=== PATIENT | female | born 1955 | race Caucasian/White ===

== ENCOUNTER → 2018-02-19 | Outpatient (CLI) | payer MEDICARE, OTHER ==
[~2018-02-19] MED LIST: CARB400T PO; CITA40TA12 PO; GABA300C PO; IBUP200C8 PO; MORP-52 PO; OXYC1TAB9 PO
[2018-02-19 16:12] LABS: MICROSCOPIC NOT IND
[2018-02-19 16:13] LABS: BASOPHILS # (AUTO) 0.04 x10^3/uL (0-0.1); BASOPHILS % (AUTO) 1 % (0-1); EOSINOPHILS # (AUTO) 0.07 x10^3/uL (0-0.4); EOSINOPHILS % (AUTO) 1 % (1-7); LYMPHOCYTES # (AUTO) 1.07 x10^3/uL (1-3.4); LYMPHOCYTES % (AUTO) 18 % (22-44); MD NO; MEAN CORPUSCULAR HEMOGLOBIN 33.2 pg (27.0-34.8); MEAN CORPUSCULAR HGB CONC 34.4 g/dL (32.4-35.8); MEAN CORPUSCULAR VOLUME 96.4 fL (80-100); MONOCYTES # (AUTO) 0.38 x10^3/uL (0.2-0.8); MONOCYTES % (AUTO) 6 % (2-9); NEUTROPHILS # (AUTO) 4.36 x10^3/uL (1.8-6.8); NEUTROPHILS % (AUTO) 74 % (42-75); PLATELET COUNT 235 x10^3/uL (130-400); RED BLOOD COUNT 4.17 x10^6/uL (3.82-5.3)
[2018-02-19 16:14] LABS: CULTURE INDICATED? NO
[2018-02-19 16:21] LABS: PROTHROMBIN TIME 10.3 Seconds (9.6-11.5)
[2018-02-19 16:23] LABS: ANION GAP 8 mmol/L (5-15); CALCIUM 8.4 mg/dL (8.5-10.1); CHLORIDE 97 mmol/L (98-107)
== END | disposition home or self-care (01) ==
LOC: STAR 15:09
DX: Z01.818 Encounter for other preprocedural examination (principal); G57.32 Lesion of lateral popliteal nerve, left lower limb
CPT/HCPCS: 36415; 80048; 81003; 85025; 85610; 85730; 93005

== ENCOUNTER 2018-11-11 12:30 | Emergency (ER) | payer MEDICARE, OTHER ==
[~2018-11-11 12:30] MED LIST changes: +OXYC-432 PO; -OXYC1TAB9 PO
--- NOTE | 2018-11-11 12:34 | NUR ---
NO RESPONSE IN LOBBY
--- NOTE | 2018-11-11 12:35 | NUR ---
Patient left prior to being triaged.
== END 2018-11-11 12:36 | disposition left against medical advice (07) ==
LOC: ED 12:31
DX: M79.605 Pain in left leg (principal); Z53.21 Procedure and treatment not carried out due to patient leaving prior to being seen by health care provider

== ENCOUNTER 2018-11-17 19:13 | Emergency (ER) | payer MEDICARE, OTHER ==
[~2018-11-17] VITALS: Ht 157.5 cm; Wt 76.7 kg
[2018-11-17 19:15] VITALS: BP 216/112
[2018-11-17] MEDS ORDERED: FURO-93 PO (19:19)
--- NOTE | 2018-11-17 19:24 | NUR ---
PT TO ROOM IN GOWN AND PA AT BEDSIDE AWAITING ORDERS.
== END 2018-11-17 20:03 | disposition home or self-care (01) ==
LOC: ED 19:49
DX: M79.631 Pain in right forearm (principal); I10 Essential (primary) hypertension
CPT/HCPCS: 99281

== ENCOUNTER 2019-02-26 13:41 | Inpatient (IN) | payer MEDICARE, MEDICAID, OTHER ==
[~2019-02-26] VITALS: Ht 157.5 cm; Wt 74.0 kg
[~2019-02-26 13:41] MED LIST changes: +FURO-93 PO
[2019-02-26] MEDS ORDERED: SODIUM CHLORIDE FLUSH 10ML SYR IVF ONE (14:00)
--- NOTE | 2019-02-26 14:24 | NUR ---
xray delay- pt very dizzy in w/c. wait for stretcher
[2019-02-26 14:40] LABS: BASOPHILS # (AUTO) 0.02 x10^3/uL (0-0.1); BASOPHILS % (AUTO) 1 % (0-1); EOSINOPHILS # (AUTO) 0.01 x10^3/uL (0-0.4); EOSINOPHILS % (AUTO) 0 % (1-7); LYMPHOCYTES % (AUTO) 16 % (22-44); MD NO; MEAN CORPUSCULAR HEMOGLOBIN 32.6 pg (27.0-34.8); MEAN CORPUSCULAR HGB CONC 34.1 g/dL (32.4-35.8); MEAN CORPUSCULAR VOLUME 95.5 fL (80-100); MEAN PLATELET VOLUME 8.2 fL (7.4-10.4); MONOCYTES # (AUTO) 0.35 x10^3/uL (0.2-0.8); MONOCYTES % (AUTO) 8 % (2-9); NEUTROPHILS # (AUTO) 3.32 x10^3/uL (1.8-6.8); NEUTROPHILS % (AUTO) 75 % (42-75); PLATELET COUNT 369 x10^3/uL (130-400); RED BLOOD COUNT 4.62 x10^6/uL (3.82-5.3); RED CELL DISTRIBUTION WIDTH 12.6 % (9.6-15.2)
[2019-02-26 14:44] LABS: ALANINE AMINOTRANSFERASE 26 U/L (12-78); ALBUMIN 5.1 g/dL (3.4-5.0); ANION GAP 11 mmol/L (5-15); CALCIUM 9.3 mg/dL (8.5-10.1); CHLORIDE 92 mmol/L (98-107); CREATININE 0.82 mg/dL (0.55-1.02)
--- NOTE | 2019-02-26 14:45 | NUR ---
PT TO XR W TECH
[2019-02-26 14:46] LABS: ALKALINE PHOSPHATASE 182 U/L (45-117); BILIRUBIN,TOTAL 0.3 mg/dL (0.2-1.0); TOTAL PROTEIN 8.1 g/dL (6.4-8.2)
[2019-02-26] MEDS ORDERED: MORPHINE SULFATE 4 MG/ML, 1ML IVPush ONE ×2 (15:30→18:30)
[2019-02-26] MEDS ORDERED: POTASSIUM CHLORIDE 40 MEQ in SODIUM CHLORIDE 0.9% 500 ML IV ONE (15:30)
[2019-02-26] MEDS ORDERED: MORPHINE SULFATE 4 MG/ML, 1ML ONE ×2 (16:01→18:09)
--- NOTE | 2019-02-26 16:05 | NUR ---
CT WAITING FOR IV ACCESS
--- NOTE | 2019-02-26 16:13 | NUR ---
XRAY TO GET PT, PT DIZZY, WAITING FOR PT TO USE rr
[2019-02-26] MEDS ORDERED: OMNIPAQUE 350 MG/ML, 100ML BOTTLE ONE (17:26)
[2019-02-26 18:59] LABS: MICROSCOPIC AUTO
[2019-02-26 19:05] LABS: CULTURE INDICATED? NO
--- NOTE | 2019-02-26 19:08 | NUR ---
FATIMAH (RN) IS ASSUMING CARE OF THIS PT AT THIS TIME. SBAR REPORT WAS EXCHANGED AT THE BEDSIDE.
--- NOTE | 2019-02-26 19:27 | NUR ---
HOME MED REC WAS DONE [facility] AT BED SIDE FOR ADMIT EVAL VSS STABLE
[2019-02-26] MEDS: HEPARIN 5,000 UNITS/ML, 1ML SQ SCH (19:30)
[2019-02-26] MEDS ORDERED: LIDODERM 5% PATCH TD PRN (19:30)
[2019-02-26] MEDS ORDERED: LABETALOL 20 MG/4 ML IVPush PRN (19:30)
[2019-02-26] MEDS ORDERED: ZOLPIDEM 5MG TABLET PO PRN (19:30)
[2019-02-26] MEDS ORDERED: hydrALAzine 20 MG/ML, 1ML IVPush PRN (19:30)
[2019-02-26 20:14] LABS: FREE T4 (FREE THYROXINE) 1.07 ng/dL (0.76-1.46); THYROID STIMULATING HORMONE 2.96 mIU/L (0.358-3.740)
--- NOTE | 2019-02-26 20:29 | NUR ---
called floor rn X1 at 2018 the nurse will call back to me for getting report
[2019-02-26 20:34] LABS: HEMOGLOBIN A1C 5.8 % (4.2-6.3)
--- NOTE | 2019-02-26 20:36 | NUR ---
REPORT GIVEN TO NAM PATTERSON 446 PT IS READY TO GO PT WAS ABLE TO DRINK APPLE JUICE W/O ANY NAUSEA NO VOMITTNG
[2019-02-26 21:00] VITALS: BP 127/77
[2019-02-26] MEDS: CITALOPRAM 20 MG TABLET PO SCH (21:00)
[2019-02-26] MEDS: OXYcodone/APAP 10/325MG TABLET PO SCH (21:00)
[2019-02-26] MEDS: GABAPENTIN 300 MG CAPSULE PO SCH (21:00)
[2019-02-26] MEDS: CARBAMAZEPINE XR 200 MG TABLET PO SCH (21:00)
[2019-02-26] MEDS: NICOTINE 21 MG/24 HR PATCH.TD24 TD SCH (21:30)
[2019-02-26 22:08] LABS: HCT (SEDRATE) 39.1 % (34.6-47.8)
[2019-02-26] MEDS: ONDANSETRON ODT 4 MG PO PRN (23:40)
[2019-02-27] MEDS: morphine SULFATE 10 MG/ML, 1ML IVPush PRN ×3 (00:40→19:24)
[2019-02-27 03:13] VITALS: BP 114/68
[2019-02-27] MEDS: HEPARIN 5,000 UNITS/ML, 1ML SQ SCH ×3 (03:30→21:36)
[2019-02-27 06:36] LABS: BASOPHILS # (AUTO) 0.03 x10^3/uL (0-0.1); BASOPHILS % (AUTO) 1 % (0-1); EOSINOPHILS # (AUTO) 0.07 x10^3/uL (0-0.4); EOSINOPHILS % (AUTO) 2 % (1-7); LYMPHOCYTES # (AUTO) 1.41 x10^3/uL (1-3.4); LYMPHOCYTES % (AUTO) 32 % (22-44); MD NO; MEAN CORPUSCULAR HEMOGLOBIN 32.2 pg (27.0-34.8); MEAN CORPUSCULAR HGB CONC 33.7 g/dL (32.4-35.8); MEAN CORPUSCULAR VOLUME 95.6 fL (80-100); MEAN PLATELET VOLUME 8.3 fL (7.4-10.4); MONOCYTES # (AUTO) 0.54 x10^3/uL (0.2-0.8); MONOCYTES % (AUTO) 13 % (2-9); NEUTROPHILS # (AUTO) 2.31 x10^3/uL (1.8-6.8); NEUTROPHILS % (AUTO) 53 % (42-75); PLATELET COUNT 293 x10^3/uL (130-400); RED BLOOD COUNT 4.13 x10^6/uL (3.82-5.3); RED CELL DISTRIBUTION WIDTH 13.2 % (9.6-15.2)
[2019-02-27 06:38] LABS: ANION GAP 8 mmol/L (5-15); CALCIUM 8.7 mg/dL (8.5-10.1); CHLORIDE 99 mmol/L (98-107)
[2019-02-27 06:44] LABS: CHOL/HDL RATIO 4.5; CHOLESTEROL, TOTAL 310 mg/dL (140-239); CREATININE 0.76 mg/dL (0.55-1.02); HDL CHOL % 22 % (28-40); HDL CHOLESTEROL (DIRECT) 69 mg/dL (40-60); LDL CHOLESTEROL,CALCULATED 225 mg/dL (54-169); LDL/HDL RATIO 3.3 (0.5-3.0); TRIGLYCERIDES 80 mg/dL (50-200); VLDL CHOLESTEROL 16 mg/dL (0-25)
[2019-02-27 07:05] VITALS: BP 110/63
[2019-02-27] MEDS: ONDANSETRON 2MG/ML, 2ML IVPush PRN (08:14)
[2019-02-27] MEDS: CITALOPRAM 20 MG TABLET PO SCH ×2 (08:47→21:36)
[2019-02-27] MEDS: PANTOPROZOLE 40MG TABLET PO SCH (08:47)
[2019-02-27] MEDS: GABAPENTIN 300 MG CAPSULE PO SCH ×3 (08:47→21:36)
[2019-02-27] MEDS: OXYcodone/APAP 10/325MG TABLET PO SCH ×3 (08:47→21:36)
[2019-02-27] MEDS: CARBAMAZEPINE XR 200 MG TABLET PO SCH ×2 (08:47→21:36)
[2019-02-27 09:20] LABS: POTASSIUM,URINE RANDOM 26 mmol/L; SODIUM,URINE RANDOM 13 mmol/L
[2019-02-27 09:21] LABS: CHLORIDE,URINE RANDOM < 10 mmol/L
[2019-02-27 09:43] LABS: OSMOLALITY,URINE 380 mOsm/kg (500-850)
[2019-02-27] MEDS ORDERED: POTASSIUM CHLORIDE 40 MEQ in SODIUM CHLORIDE 0.9% 500 ML IV ONE (14:30)
[2019-02-27 15:55] VITALS: BP 131/73
[2019-02-27 21:10] VITALS: BP 111/67
[2019-02-27] MEDS: NICOTINE 21 MG/24 HR PATCH.TD24 TD SCH (21:30)
[2019-02-28] MEDS: ONDANSETRON 2MG/ML, 2ML IVPush PRN
[2019-02-28 02:07] VITALS: BP 141/77
[2019-02-28] MEDS: morphine SULFATE 10 MG/ML, 1ML IVPush PRN ×4 (03:05→17:53)
[2019-02-28] MEDS: HEPARIN 5,000 UNITS/ML, 1ML SQ SCH ×3 (04:30→21:53)
[2019-02-28 05:36] LABS: BASOPHILS # (AUTO) 0.03 x10^3/uL (0-0.1); BASOPHILS % (AUTO) 1 % (0-1); EOSINOPHILS # (AUTO) 0.11 x10^3/uL (0-0.4); EOSINOPHILS % (AUTO) 3 % (1-7); LYMPHOCYTES % (AUTO) 35 % (22-44); MD NO; MEAN CORPUSCULAR HEMOGLOBIN 32.4 pg (27.0-34.8); MEAN CORPUSCULAR HGB CONC 33.5 g/dL (32.4-35.8); MEAN CORPUSCULAR VOLUME 96.9 fL (80-100); MEAN PLATELET VOLUME 8.2 fL (7.4-10.4); MONOCYTES # (AUTO) 0.45 x10^3/uL (0.2-0.8); MONOCYTES % (AUTO) 12 % (2-9); NEUTROPHILS # (AUTO) 1.97 x10^3/uL (1.8-6.8); NEUTROPHILS % (AUTO) 50 % (42-75); PLATELET COUNT 277 x10^3/uL (130-400); RED BLOOD COUNT 3.75 x10^6/uL (3.82-5.3)
[2019-02-28 08:14] VITALS: BP 127/70
[2019-02-28] MEDS: GABAPENTIN 300 MG CAPSULE PO SCH ×3 (08:17→21:52)
[2019-02-28] MEDS: CARBAMAZEPINE XR 200 MG TABLET PO SCH ×2 (08:17→21:52)
[2019-02-28] MEDS: OXYcodone/APAP 10/325MG TABLET PO SCH ×3 (08:17→21:52)
[2019-02-28] MEDS: PANTOPROZOLE 40MG TABLET PO SCH (08:17)
[2019-02-28] MEDS: CITALOPRAM 20 MG TABLET PO SCH ×2 (08:17→21:52)
[2019-02-28 08:31] LABS: ALBUMIN 3.5 g/dL (3.4-5.0); ANION GAP 1 mmol/L (5-15); CALCIUM 8.4 mg/dL (8.5-10.1); CHLORIDE 106 mmol/L (98-107); CREATININE 0.75 mg/dL (0.55-1.02)
[2019-02-28] MEDS: ONDANSETRON ODT 4 MG PO PRN (13:12)
[2019-02-28 13:56] VITALS: BP 146/79
[2019-02-28] MEDS ORDERED: LIDO700A20 TD (14:30)
[2019-02-28] MEDS ORDERED: OMEP-110 PO (14:30)
[2019-02-28] MEDS ORDERED: BISACODYL 10 MG SUPP PR PRN ×2 (14:40→17:00)
[2019-02-28] MEDS ORDERED: POLYETHYLENE GLYCOL 17 GM PACKET PO PRN (17:00)
[2019-02-28] MEDS ORDERED: MAGNESIUM HYDROXIDE 8%, 30ML UDC PO PRN (17:00)
[2019-02-28 20:03] VITALS: BP 131/75
[2019-02-28] MEDS: NICOTINE 21 MG/24 HR PATCH.TD24 TD SCH (21:30)
[2019-03-01] MEDS: morphine SULFATE 10 MG/ML, 1ML IVPush PRN (01:22)
[2019-03-01 01:47] VITALS: BP 126/76
[2019-03-01] MEDS: HEPARIN 5,000 UNITS/ML, 1ML SQ SCH (04:30)
[2019-03-01 07:55] VITALS: BP 145/86
[2019-03-01] MEDS: CARBAMAZEPINE XR 200 MG TABLET PO SCH (08:03)
[2019-03-01] MEDS: OXYcodone/APAP 10/325MG TABLET PO SCH (08:03)
[2019-03-01] MEDS: PANTOPROZOLE 40MG TABLET PO SCH (08:03)
[2019-03-01] MEDS: GABAPENTIN 300 MG CAPSULE PO SCH (08:04)
[2019-03-01] MEDS: CITALOPRAM 20 MG TABLET PO SCH (08:04)
[2019-03-01] MEDS: ONDANSETRON ODT 4 MG PO PRN (08:33)
[2019-03-01] MEDS ORDERED: ONDA4TAB7 PO (09:15)
[2019-03-01] MEDS ORDERED: ATOR20TA86 PO (09:25)
== END 2019-03-01 10:40 | disposition home or self-care (01) | DRG 392 ==
LOC: ED 16:33 → EDIP 19:24 → 4NOR 21:07 → DCLOUNGE 03-01 10:33
PROVIDERS: ADMIT Hospitalist; ATTEND Hospitalist
DX: A08.4 Viral intestinal infection, unspecified (principal); E87.1 Hypo-osmolality and hyponatremia; M54.5 Low back pain; E87.6 Hypokalemia; E86.0 Dehydration; G62.9 Polyneuropathy, unspecified; G40.909 Epilepsy, unspecified, not intractable, without status epilepticus; N18.9 Chronic kidney disease, unspecified; I12.9 Hypertensive chronic kidney disease with stage 1 through stage 4 chronic kidney disease, or unspecified chronic kidney disease; G89.29 Other chronic pain; F32.9 Major depressive disorder, single episode, unspecified; K86.89 Other specified diseases of pancreas; F17.210 Nicotine dependence, cigarettes, uncomplicated; Z99.2 Dependence on renal dialysis; Z90.710 Acquired absence of both cervix and uterus; Z79.899 Other long term (current) drug therapy
CPT/HCPCS: 36415; 74022; 74177; 80048; 80053; 80061; 81001; 82040; 82436; 83036; 83690; 83930; 83935; 84133; 84300; 84439; 84443; 85025; 85651; 96374; 96375; 99285; G0378; J1644; J2405; J3480; Q0162; Q9967; J2270; J7040

== ENCOUNTER 2019-05-25 19:28 | Emergency (ER) | payer MEDICARE, MEDICAID ==
[~2019-05-25] VITALS: Ht 160 cm; Wt 70.6 kg
[~2019-05-25 19:28] MED LIST changes: +ATOR20TA86 PO; +LIDO700A20 TD; +OMEP-110 PO; +ONDA4TAB7 PO
[2019-05-25 19:30] VITALS: BP 157/105
--- NOTE | 2019-05-25 19:37 | NUR ---
FIRST CONTACT WITH PT. PT STATES " I WENT SWIMMING TODAY AND DEVELOPED RIGHT SHOULER PAIN. " PT DENIES ANY OTHER SYMPTOMS. PT'S AOX4. RESPS EVEN AND UNLABORED.
[2019-05-25] MEDS ORDERED: OXYcodone/APAP 10/325MG TABLET ONE (19:49)
--- NOTE | 2019-05-25 19:52 | NUR ---
PT MEDICATED PER EMAR FOR PAIN. PT TOLERATED WELL.
[2019-05-25] MEDS ORDERED: OXYcodone/APAP 10/325MG TABLET PO ONE (20:00)
--- NOTE | 2019-05-25 20:01 | NUR ---
PT IN XRAY NOW.
--- NOTE | 2019-05-25 20:53 | NUR ---
PT LEFT WITHOUT DC INSTRUCTIONS.
== END 2019-05-25 20:46 | disposition home or self-care (01) ==
LOC: ED 20:28
DX: M25.511 Pain in right shoulder (principal); I10 Essential (primary) hypertension; F17.200 Nicotine dependence, unspecified, uncomplicated
CPT/HCPCS: 99283

== ENCOUNTER 2020-07-30 11:17 | Observation (INO) | payer MEDICARE ==
[~2020-07-30] VITALS: Ht 157.5 cm; Wt 68.9 kg
[~2020-07-30 11:17] MED LIST changes: -OXYC-432 PO; +OXYC1TAB18 PO
[2020-07-30] MEDS ORDERED: ONDANSETRON 2MG/ML, 2ML IVPush ONE ×2 (11:30→14:00)
[2020-07-30] MEDS ORDERED: HYDROmorphone 1 MG/ML, 1ML INJ ONE ×3 (11:53→15:23)
[2020-07-30] MEDS ORDERED: ONDANSETRON 2MG/ML, 2ML ONE ×2 (11:53→13:45)
[2020-07-30] MEDS: HYDROmorphone 1 MG/ML, 1ML INJ IVPush PRN ×2 (11:58→13:00)
[2020-07-30] MEDS ORDERED: PLEASE ENTER HEIGHT AND WEIGHT MC SCH (12:00)
--- NOTE | 2020-07-30 12:17 | NUR ---
PT MEDICATED ORDERED. PT ON BEDSIDE COMMODE FOR UA SAMPLE. PT REPORT SSHE HAS NOT BEEN ABLE TO VOID EASILY SINCE YESTERDAY.
[2020-07-30 12:33] LABS: MICROSCOPIC NOT IND
--- NOTE | 2020-07-30 13:04 | NUR ---
PT MEDICATED AGAIN FOR PAIN. PT TO RAD.
[2020-07-30] MEDS ORDERED: methylPREDNISolone SOD SUCC 125 MG/2 ML ONE (13:38)
[2020-07-30] MEDS ORDERED: methylPREDNISolone SOD SUCC 125 MG/2 ML IVPush ONE (14:00)
--- NOTE | 2020-07-30 14:00 | NUR ---
PT GIVEN SOLUMEDROL PER MD ORDER. WAITING FOR MD RECHECK. PT ASSITED TO BEDSIDE COMMODE. PT ABLE TO STAND AND WALK WITH HER CANE.
[2020-07-30] MEDS ORDERED: HYDROmorphone 1 MG/ML, 1ML INJ IV ONE (15:00)
--- NOTE | 2020-07-30 15:36 | NUR ---
PT REMEDICATED FOR PAIN ASSISTED TO BEDSIDE COMMODE. PT TO HAVE MRI.
--- NOTE | 2020-07-30 16:05 | NUR ---
PT TO MRI.
--- NOTE | 2020-07-30 16:59 | NUR ---
PT BACK FROM MRI AND ON BEDSIDE COMMODE. CHART UP FOR MD RECHECK. PT AWARE.
--- NOTE | 2020-07-30 17:28 | NUR ---
task rn: marcus in room for reeval. pt tbadm for pain control. as
--- NOTE | 2020-07-30 17:40 | NUR ---
CAN EAT PER MADELEINE ORDERED DINNER.
[2020-07-30] MEDS ORDERED: OXYcodone/APAP 10/325MG TABLET PO SCH (18:00)
[2020-07-30] MEDS ORDERED: ONDANSETRON 4 MG TABLET PO PRN (18:00)
[2020-07-30] MEDS ORDERED: POLYETHYLENE GLYCOL 17 GM PACKET PO PRN (18:30)
[2020-07-30] MEDS ORDERED: hydrALAzine 20 MG/ML, 1ML IV PRN (18:30)
[2020-07-30] MEDS ORDERED: MEDROL 4MG DOSEPAK PO SCH (18:30)
[2020-07-30] MEDS ORDERED: BISACODYL 10 MG SUPP PR PRN (18:30)
[2020-07-30] MEDS ORDERED: ACETAMINOPHEN 325 MG TABLET PO PRN (18:30)
--- NOTE | 2020-07-30 18:30 | NUR ---
PT GIVEN MEAL TRAY. PT ASSITED TO BEDSIDE COMMODE BEFORE EATING. WAITING FOR BED ASSIGNMENT.
[2020-07-30] MEDS ORDERED: GABAPENTIN 300 MG CAPSULE ONE (19:13)
[2020-07-30] MEDS ORDERED: OXYcodone/APAP 10/325MG TABLET ONE (19:13)
[2020-07-30] MEDS: GABAPENTIN 300 MG CAPSULE PO SCH ×2 (19:15→22:02)
--- NOTE | 2020-07-30 19:20 | NUR ---
PT MEDICATED FOR PAIN AND NAUSEA. STILL WAITING FOR BED ASSIGNMENT.
[2020-07-30] MEDS ORDERED: GABA-827 PO (19:21)
[2020-07-30] MEDS ORDERED: lisinopril (19:25)
[2020-07-30] MEDS ORDERED: FAMOTIDINE (19:25)
[2020-07-30] MEDS ORDERED: METH750T87 PO (19:25)
[2020-07-30] MEDS ORDERED: ALBUTEROL (19:25)
[2020-07-30] MEDS ORDERED: ONDANSETRON ODT 4 MG ONE (19:57)
[2020-07-30] MEDS: ONDANSETRON ODT 4 MG PO PRN (20:07)
[2020-07-30] MEDS ORDERED: ENALAPRILAT 1.25 MG/ML, 1ML ONE (20:51)
--- NOTE | 2020-07-30 20:55 | NUR ---
GUILHERME AWARE OF VASOTEC BEING GIVEN PER NAHUM AND ALSO PT NOT TAKE ING HER HOME BP MEDS THIS AM. PER NAHUM AND GUILHERME AWARE, PT TO GET HOME BP MEDS OF AMLODIPINE AND LISINOPRIL IF BP DOES NOT RESPOND TO VASOTEC.
--- NOTE | 2020-07-30 20:58 | NUR ---
PT MEDICATED FOR BP OF 193/96. PT WAS TO GET HYRALAZINE BUT HOSPITAL IS OUT OF MEDICATION PER PHARMACY. NAHUM RUBY ON RAILS ENGINEER AWARE AND ORDERED VASOTEC. PT DID NOT TAKE HER MORNING BP MEDS.
[2020-07-30] MEDS ORDERED: ATORVASTATIN 20 MG TABLET PO SCH (21:00)
[2020-07-30] MEDS: ENALAPRILAT 1.25 MG/ML, 2ML IV PRN (21:01)
[2020-07-30 21:19] VITALS: BP 178/90
[2020-07-30] MEDS ORDERED: CARBAMAZEPINE MC SCH (22:00)
[2020-07-30] MEDS: LIDODERM 5% PATCH TD SCH ×2 (22:00→23:30)
[2020-07-30] MEDS: HEPARIN 5,000 UNITS/ML, 1ML SQ SCH (22:02)
[2020-07-30] MEDS: SODIUM CHLORIDE FLUSH 10ML SYR IVF SCH (22:03)
[2020-07-30] MEDS: CARBAMAZEPINE XR 200 MG TABLET PO SCH (22:08)
[2020-07-30 22:23] VITALS: BP 191/99
[2020-07-30] MEDS: AMLODIPINE 5 MG TABLET PO SCH (22:26)
[2020-07-30] MEDS: ACETAMINOPHEN 500 MG TABLET PO PRN (23:30)
[2020-07-31 00:15] VITALS: BP 191/94
[2020-07-31] MEDS: ENALAPRILAT 1.25 MG/ML, 2ML IV PRN (00:24)
[2020-07-31] MEDS: OXYcodone/APAP 10/325MG TABLET PO PRN ×3 (00:54→12:58)
[2020-07-31 02:23] VITALS: BP 166/90
[2020-07-31] MEDS: HEPARIN 5,000 UNITS/ML, 1ML SQ SCH ×2 (05:51→13:59)
[2020-07-31 06:38] VITALS: BP 168/90
[2020-07-31] MEDS ORDERED: OMEPRAZOLE 20 MG CAPSULE.DR PO SCH (07:30)
[2020-07-31] MEDS: ONDANSETRON ODT 4 MG PO PRN (08:48)
[2020-07-31] MEDS: GABAPENTIN 300 MG CAPSULE PO SCH (08:48)
[2020-07-31] MEDS: AMLODIPINE 5 MG TABLET PO SCH (08:49)
[2020-07-31] MEDS: CARBAMAZEPINE XR 200 MG TABLET PO SCH (08:52)
[2020-07-31] MEDS ORDERED: LISINOPRIL 10 MG TABLET PO SCH (09:00)
[2020-07-31] MEDS ORDERED: FUROSEMIDE 20 MG TABLET PO SCH (09:00)
[2020-07-31] MEDS ORDERED: SENNA/DOCUSATE TABLET PO SCH (09:00)
[2020-07-31] MEDS: SODIUM CHLORIDE FLUSH 10ML SYR IVF SCH (09:00)
[2020-07-31] MEDS ORDERED: LIDODERM REMOVE PATCH NOTE XX SCH (10:00)
[2020-07-31] MEDS: ACETAMINOPHEN 500 MG TABLET PO PRN (11:34)
[2020-07-31] MEDS ORDERED: METH4TAB PO (12:07)
[2020-07-31 13:34] VITALS: BP 148/69
== END 2020-07-31 15:00 | disposition home or self-care (01) ==
LOC: ED 14:19 → INTOOBSV 17:32 → EDIP 17:32 → 3N 21:10 → DCLOUNGE 07-31 14:40
PROVIDERS: ADMIT Hospitalist; ATTEND Hospitalist
DX: M51.36 Other intervertebral disc degeneration, lumbar region (principal); M48.07 Spinal stenosis, lumbosacral region; M54.9 Dorsalgia, unspecified; G89.29 Other chronic pain; I16.0 Hypertensive urgency; M47.9 Spondylosis, unspecified; I10 Essential (primary) hypertension; F11.20 Opioid dependence, uncomplicated; F17.210 Nicotine dependence, cigarettes, uncomplicated; F32.9 Major depressive disorder, single episode, unspecified; R56.9 Unspecified convulsions; E78.5 Hyperlipidemia, unspecified; M21.372 Foot drop, left foot; Z79.899 Other long term (current) drug therapy; Z90.710 Acquired absence of both cervix and uterus; Z66 Do not resuscitate
CPT/HCPCS: 72148; 73502; 81003; 96372; 96374; 96375; 96376; 97163; 99285; G0378; J1170; J1644; J2405; J2930; J7509; Q0162

== ENCOUNTER 2020-08-08 01:22 | Emergency (ER) | payer MEDICARE ==
[~2020-08-08] VITALS: Ht 157.5 cm; Wt 70.9 kg
[~2020-08-08 01:22] MED LIST changes: +ALBUTEROL; +FAMOTIDINE; +GABA-827 PO; +METH4TAB PO; +METH750T87 PO; +lisinopril
[2020-08-08] MEDS ORDERED: LIDODERM 5% PATCH TD ONE ×2 (01:54→02:00)
[2020-08-08] MEDS ORDERED: KETOROLAC 30 MG/1 ML ONE (01:54)
[2020-08-08] MEDS ORDERED: HYDROmorphone 2 MG/ML, 1ML ONE ×2 (01:54→03:08)
[2020-08-08] MEDS ORDERED: ONDANSETRON 2MG/ML, 2ML ONE (01:55)
[2020-08-08] MEDS ORDERED: KETOROLAC 30 MG/1 ML IVPush ONE (02:00)
[2020-08-08] MEDS ORDERED: ONDANSETRON 2MG/ML, 2ML IVPush ONE (02:00)
[2020-08-08] MEDS: HYDROmorphone 2 MG/ML, 1ML IVPush PRN ×2 (02:12→03:13)
--- NOTE | 2020-08-08 03:13 | NUR ---
Pain 8/10 from previous 08/22. Second dose of dilaudid given. Pt states she will be ready for discharge after second dose. notified.
[2020-08-08 03:14] VITALS: BP 156/110
--- NOTE | 2020-08-08 03:40 | NUR ---
Reviewed discharge paperwork with pt. Pt is drowsy from dilaudid. RN keeping pt until safe for discharge. Taxi vouchure will be provided for safe discharge.
== END 2020-08-08 05:03 | disposition home or self-care (01) ==
LOC: ED 04:54
DX: M54.16 Radiculopathy, lumbar region (principal); I10 Essential (primary) hypertension; G89.29 Other chronic pain
CPT/HCPCS: 96374; 96375; 96376; 99284; J1170; J1885; J2405

== ENCOUNTER 2020-08-22 12:27 | Emergency (ER) | payer MEDICARE ==
[~2020-08-22] VITALS: Ht 157.5 cm; Wt 71.0 kg
[2020-08-22] MEDS ORDERED: SODIUM CHLORIDE FLUSH 10ML SYR IVF ONE (13:00)
[2020-08-22] MEDS ORDERED: KETOROLAC 30 MG/1 ML IVPush ONE (13:00)
[2020-08-22] MEDS ORDERED: ONDANSETRON 2MG/ML, 2ML IVPush ONE (13:00)
[2020-08-22] MEDS ORDERED: KETOROLAC 30 MG/1 ML ONE (13:11)
[2020-08-22] MEDS ORDERED: HYDROmorphone 1 MG/ML, 1ML INJ ONE ×2 (13:12→14:23)
[2020-08-22] MEDS ORDERED: ONDANSETRON 2MG/ML, 2ML ONE (13:12)
[2020-08-22] MEDS: HYDROmorphone 2 MG/ML, 1ML IVPush PRN ×2 (13:46→14:25)
[2020-08-22 14:20] VITALS: BP 138/78
--- NOTE | 2020-08-22 14:27 | NUR ---
BREAK RN: PT REPORTS PAIN STILL 8/10, REQUESTING SECOND DOSE OF PAIN MEDS PRIOR TO DC. PT MEDICATED PER EMAR. RESTING ON GURNEY W/ CALL LIGHT IN REACH AND SIDE RAILS UPX2. GONZÁLEZ ELMORE.
== END 2020-08-22 15:08 | disposition home or self-care (01) ==
LOC: ED 13:14
DX: M54.41 Lumbago with sciatica, right side (principal); G89.29 Other chronic pain; G43.909 Migraine, unspecified, not intractable, without status migrainosus; I10 Essential (primary) hypertension
CPT/HCPCS: 96374; 96375; 96376; 99284; J1170; J1885; J2405

== ENCOUNTER 2020-09-06 14:59 | Emergency (ER) | payer MEDICARE, MEDICAID ==
[~2020-09-06] VITALS: Ht 157.5 cm; Wt 70.0 kg
[~2020-09-06 14:59] MED LIST changes: +PROM25SU35 PR; -lisinopril; +lisinopril PO
[2020-09-06 15:15] VITALS: BP 98/53
--- NOTE | 2020-09-06 15:40 | NUR ---
PT RESTING IN BED, BROUGHT BACK FROM TRIAGE WITH CHIEF COMPLAINT OF LOW BACK PAIN STARTING THIS AM. HX OF BACK PAIN, SEEING ORTHO FOR POSSIBLE SURGERY.
[2020-09-06] MEDS ORDERED: KETOROLAC 30 MG/1 ML ONE (15:44)
[2020-09-06] MEDS ORDERED: HYDROmorphone 1 MG/ML, 1ML INJ ONE (15:44)
[2020-09-06 15:52] LABS: BASOPHILS % (AUTO) 1 % (0-1); EOSINOPHILS % (AUTO) 1 % (1-7); LYMPHOCYTES % (AUTO) 14 % (22-44); MEAN CORPUSCULAR HEMOGLOBIN 33.4 pg (27.0-34.8); MEAN CORPUSCULAR HGB CONC 34.4 g/dL (32.4-35.8); MEAN PLATELET VOLUME 7.5 fL (7.4-10.4); MONOCYTES % (AUTO) 9 % (2-9); NEUTROPHILS % (AUTO) 75 % (42-75); PLATELET COUNT 407 x10^3/uL (130-400); RED BLOOD COUNT 4.05 x10^6/uL (3.82-5.3); RED CELL DISTRIBUTION WIDTH 12.9 % (9.6-15.2)
[2020-09-06 15:53] LABS: MD NO
[2020-09-06] MEDS ORDERED: SODIUM CHLORIDE FLUSH 10ML SYR IVF ONE (16:00)
[2020-09-06] MEDS ORDERED: KETOROLAC 30 MG/1 ML IVPush ONE (16:00)
[2020-09-06] MEDS ORDERED: HYDROmorphone 2 MG/ML, 1ML IVPush PRN (16:00)
[2020-09-06 16:06] LABS: ALANINE AMINOTRANSFERASE 16 U/L (12-78); ALBUMIN 3.7 g/dL (3.4-5.0); ANION GAP 7 mmol/L (5-15); CALCIUM 8.8 mg/dL (8.5-10.1); CHLORIDE 95 mmol/L (98-107)
[2020-09-06 16:08] LABS: ALKALINE PHOSPHATASE 125 U/L (45-117); BILIRUBIN,TOTAL 0.3 mg/dL (0.2-1.0); TOTAL PROTEIN 7.1 g/dL (6.4-8.2)
--- NOTE | 2020-09-06 16:11 | NUR ---
AWARE OF NEEDED URINE SAMPLE
--- NOTE | 2020-09-06 16:50 | NUR ---
DISCHARGE INSTRUCITONS REVIEWED
== END 2020-09-06 16:52 | disposition home or self-care (01) ==
LOC: ED 16:48
DX: M51.16 Intervertebral disc disorders with radiculopathy, lumbar region (principal); E87.1 Hypo-osmolality and hyponatremia; R94.31 Abnormal electrocardiogram [ECG] [EKG]; G89.29 Other chronic pain; G43.909 Migraine, unspecified, not intractable, without status migrainosus
CPT/HCPCS: 36415; 71045; 80053; 83690; 85025; 93005; 96374; 96375; 99285; J1170; J1885

== ENCOUNTER 2020-09-18 18:13 | Emergency (ER) | payer MEDICARE, MEDICAID ==
[~2020-09-18] VITALS: Ht 157.5 cm; Wt 69.5 kg
--- NOTE | 2020-09-18 19:17 | NUR ---
PT AMB TO ROOM FROM LOBBY STEADY GAIT AT THIS TIME
--- NOTE | 2020-09-18 19:20 | NUR ---
URINE SENT TO LAB
[2020-09-18 19:49] LABS: MICROSCOPIC NOT IND
[2020-09-18] MEDS ORDERED: HYDROmorphone 1 MG/ML, 1ML INJ IM ONE (20:00)
[2020-09-18] MEDS ORDERED: HYDROmorphone 1 MG/ML, 1ML INJ ONE (20:10)
[2020-09-18 20:16] VITALS: BP 141/81
[2020-09-18] MEDS ORDERED: PROMETHAZINE 25 MG/ML, 1ML ONE (20:22)
[2020-09-18] MEDS ORDERED: PROMETHAZINE 25 MG/ML, 1ML IM ONE (20:30)
--- NOTE | 2020-09-18 20:36 | NUR ---
Pt medicated per mar, Patient/Caregiver given discharge instructions and they have confirmed that they understand the instructions. Patient ambulatory with steady gait.
== END 2020-09-18 20:38 | disposition home or self-care (01) ==
LOC: ED 20:37
DX: M25.551 Pain in right hip (principal); R20.2 Paresthesia of skin; M54.5 Low back pain; I10 Essential (primary) hypertension; F17.200 Nicotine dependence, unspecified, uncomplicated; G43.909 Migraine, unspecified, not intractable, without status migrainosus
CPT/HCPCS: 81003; 96372; 99284; J1170; J2550

== ENCOUNTER 2020-11-01 15:36 | Emergency (ER) | payer MEDICARE, MEDICAID ==
[~2020-11-01] VITALS: Ht 157.5 cm; Wt 72.2 kg
[~2020-11-01 15:36] MED LIST changes: +PROM25TA10 PR
--- NOTE | 2020-11-01 16:24 | NUR ---
PT LYING ON LEFT SIDE IN POSITION OF COMFORT. NOTED TO HAVE SEVERAL ANAYA SPINAL REGION S/P SURGERY OCT 21. STATES PAIN WORSENED YESTERDAY AND USED ALL HER MEDS UP YESTERDAY.
[2020-11-01] MEDS ORDERED: HYDROmorphone 2 MG/ML, 1ML IM ONE (17:00)
[2020-11-01] MEDS ORDERED: HYDROmorphone 1 MG/ML, 1ML INJ ONE (17:19)
[2020-11-01 17:25] LABS: BASOPHILS % (AUTO) 1 % (0-1); EOSINOPHILS % (AUTO) 4 % (1-7); LYMPHOCYTES % (AUTO) 12 % (22-44); MEAN CORPUSCULAR HGB CONC 34.7 g/dL (32.4-35.8); MEAN PLATELET VOLUME 7.7 fL (7.4-10.4); MONOCYTES % (AUTO) 7 % (2-9); NEUTROPHILS % (AUTO) 76 % (42-75); PLATELET COUNT 626 x10^3/uL (130-400); RED CELL DISTRIBUTION WIDTH 12.8 % (9.6-15.2)
--- NOTE | 2020-11-01 17:26 | NUR ---
AFTER MD BENEDICT MEDICATED NOTED ON JAN AND TO CT VIA PIPO
--- NOTE | 2020-11-01 17:27 | NUR ---
CORRECTION TO ABOVE NOT TO XRAY VIA PIPO
[2020-11-01 17:32] LABS: ALBUMIN 3.5 g/dL (3.4-5.0); ANION GAP 7 mmol/L (5-15); CALCIUM 8.8 mg/dL (8.5-10.1); CHLORIDE 103 mmol/L (98-107); CREATININE 0.78 mg/dL (0.55-1.02)
--- NOTE | 2020-11-01 17:58 | NUR ---
PT STATES PAIN 9/10 BUT PRESENTS MUCH MORE COMFORTABLE THAN BEFORE. AMBULATED TO BATHROOM WITH USE OF WALKER AND WITHOUT ASSISTANCE.
[2020-11-01 18:23] LABS: <RBC MORPHOLOGY> NORMAL; MD MORPH REVIEW ONLY
[2020-11-01 18:24] LABS: <PLATELET ESTIMATE> INCREASED; LARGE PLATELETS 1+
--- NOTE | 2020-11-01 18:26 | NUR ---
back in gurney lying on gurney on side in position of comfort, no distress. urine sample sent to lab
[2020-11-01 18:36] LABS: MICROSCOPIC NOT IND
--- NOTE | 2020-11-01 18:42 | NUR ---
PROVIDED SNACKS WHILE AWAITING RE-EVAL
--- NOTE | 2020-11-01 18:54 | NUR ---
BEDSIDE REPORT FROM JAROD BROWNING, ASSUMMING CARE OF PT AT THIS TIME
[2020-11-01] MEDS ORDERED: OXYcodone/APAP 10/325MG TABLET ONE (19:40)
[2020-11-01 19:43] VITALS: BP 145/67
--- NOTE | 2020-11-01 19:47 | NUR ---
PT MEDICATED PER MAR
--- NOTE | 2020-11-01 19:49 | NUR ---
PER DR LAU AWAITING CALL FROM AMY TO CREATE PAIN MANAGEMENT PLAN
[2020-11-01] MEDS ORDERED: OXYcodone/APAP 10/325MG TABLET PO ONE (20:00)
--- NOTE | 2020-11-01 21:04 | NUR ---
Patient/Caregiver given discharge instructions and they have confirmed that they understand the instructions. Patient ambulatory with steady gait. PT REFUSED DC VITALS
== END 2020-11-01 21:16 | disposition home or self-care (01) ==
LOC: ED 16:31
DX: M54.5 Low back pain (principal); G89.29 Other chronic pain; I11.0 Hypertensive heart disease with heart failure; I50.9 Heart failure, unspecified; F17.200 Nicotine dependence, unspecified, uncomplicated
CPT/HCPCS: 36415; 72110; 80048; 81003; 82040; 85025; 96372; 99284; J1170

== ENCOUNTER 2020-11-17 23:51 | Emergency (ER) | payer MEDICARE, MEDICAID ==
[~2020-11-17] VITALS: Ht 157.5 cm; Wt 69.9 kg
[2020-11-18] MEDS ORDERED: HYDROmorphone 1 MG/ML, 1ML INJ ONE ×2 (00:24→01:59)
[2020-11-18] MEDS ORDERED: HYDROmorphone 1 MG/ML, 1ML INJ IM ONE ×2 (00:30→02:00)
[2020-11-18 02:33] VITALS: BP 102/53
== END 2020-11-18 02:45 | disposition home or self-care (01) ==
LOC: ED 11-18 00:28
DX: M54.5 Low back pain (principal); I10 Essential (primary) hypertension; G43.909 Migraine, unspecified, not intractable, without status migrainosus; G89.29 Other chronic pain; F17.200 Nicotine dependence, unspecified, uncomplicated
CPT/HCPCS: 96372; 99284; J1170

== ENCOUNTER 2020-11-24 17:42 | Emergency (ER) | payer MEDICARE, MEDICAID ==
[~2020-11-24] VITALS: Ht 157.5 cm; Wt 71.4 kg
[~2020-11-24 17:42] MED LIST changes: +POLY17PO5 PO; +PSYL0.5215 PO
[2020-11-24] MEDS ORDERED: KETOROLAC 60 MG/2 ML ONE (18:19)
--- NOTE | 2020-11-24 18:20 | NUR ---
BREAK RN: PT TO XR
[2020-11-24] MEDS ORDERED: KETOROLAC 30 MG/1 ML IM ONE (18:30)
[2020-11-24 19:18] LABS: ALBUMIN 4.3 g/dL (3.4-5.0); ANION GAP 9 mmol/L (5-15); CALCIUM 9.1 mg/dL (8.5-10.1); CHLORIDE 95 mmol/L (98-107)
[2020-11-24 19:23] LABS: BASOPHILS % (AUTO) 1 % (0-1); EOSINOPHILS % (AUTO) 3 % (1-7); LYMPHOCYTES % (AUTO) 19 % (22-44); MEAN CORPUSCULAR HEMOGLOBIN 31.4 pg (27.0-34.8); MEAN CORPUSCULAR HGB CONC 34.4 g/dL (32.4-35.8); MONOCYTES % (AUTO) 10 % (2-9); NEUTROPHILS % (AUTO) 67 % (42-75); PLATELET COUNT 384 x10^3/uL (130-400); RED BLOOD COUNT 3.53 x10^6/uL (3.82-5.3); RED CELL DISTRIBUTION WIDTH 14.6 % (9.6-15.2)
[2020-11-24 19:28] LABS: MD NO
[2020-11-24] MEDS ORDERED: HYDROmorphone 2 MG/ML, 1ML IM PRN (19:30)
[2020-11-24] MEDS ORDERED: HYDROmorphone 2 MG/ML, 1ML ONE (19:30)
[2020-11-24] MEDS ORDERED: POTASSIUM CHLORIDE 20 MEQ TAB.ER.PRT ONE (20:16)
[2020-11-24] MEDS ORDERED: POTASSIUM CHLORIDE 20 MEQ TAB.ER.PRT PO ONE (20:30)
[2020-11-24] MEDS ORDERED: HYDROmorphone 1 MG/ML, 1ML INJ ONE (21:53)
[2020-11-24] MEDS ORDERED: HYDROmorphone 1 MG/ML, 1ML INJ IV ONE (22:00)
[2020-11-24 22:31] VITALS: BP 149/85
--- NOTE | 2020-11-24 22:33 | NUR ---
PT AMBULATED TO LOBBY WITH WALKER, PT'S FRIEND WILL COME PICK HER UP. PT EDUCATED ABOUT NOT DRIVING HERSELF DUE TO PAIN MEDICATIONS GIVEN.
== END 2020-11-24 22:34 | disposition home or self-care (01) ==
LOC: ED 18:13
DX: G89.11 Acute pain due to trauma (principal); M25.511 Pain in right shoulder; M54.6 Pain in thoracic spine; M54.5 Low back pain; E87.1 Hypo-osmolality and hyponatremia; E87.6 Hypokalemia; I11.0 Hypertensive heart disease with heart failure; I50.9 Heart failure, unspecified; G89.29 Other chronic pain; G43.909 Migraine, unspecified, not intractable, without status migrainosus; F17.200 Nicotine dependence, unspecified, uncomplicated
CPT/HCPCS: 36415; 72072; 72110; 73030; 80048; 82040; 85025; 96372; 96374; 99284; J1170; J1885

== ENCOUNTER 2020-11-26 04:33 | Emergency (ER) | payer MEDICARE, MEDICAID ==
[~2020-11-26] VITALS: Ht 157.5 cm; Wt 74.5 kg
[2020-11-26] MEDS ORDERED: KETOROLAC 30 MG/1 ML ONE (04:59)
[2020-11-26] MEDS ORDERED: HYDROmorphone 1 MG/ML, 1ML INJ ONE (04:59)
[2020-11-26] MEDS ORDERED: HYDROmorphone 2 MG/ML, 1ML IM ONE (05:00)
[2020-11-26] MEDS ORDERED: KETOROLAC 30 MG/1 ML IM ONE (05:00)
--- NOTE | 2020-11-26 05:09 | NUR ---
PT HAVING INCREASED BACK PAIN THIS MORNING, CHRONIC ISSUE, PT MEDICATED PER EMAR, PLACED ON CONTINUOUS PULSE OX AND PROVIDED WARM BLANKET FOR COMFORT.
[2020-11-26 05:35] VITALS: BP 124/59
--- NOTE | 2020-11-26 05:37 | NUR ---
PT STATES FEELING A LITTLE BIT BETTER AFTER MEDICATION ADMIN, PT RESTING IN GURNEY, EVEN RESPIRATIONS, PULSE OX IN PLACE
== END 2020-11-26 05:53 | disposition home or self-care (01) ==
LOC: ED 05:51
DX: S39.012A Strain of muscle, fascia and tendon of lower back, initial encounter (principal); S29.012A Strain of muscle and tendon of back wall of thorax, initial encounter; M25.511 Pain in right shoulder; I11.0 Hypertensive heart disease with heart failure; I50.9 Heart failure, unspecified; E87.6 Hypokalemia; E87.1 Hypo-osmolality and hyponatremia; G43.909 Migraine, unspecified, not intractable, without status migrainosus; G89.29 Other chronic pain; W01.0XXA Fall on same level from slipping, tripping and stumbling without subsequent striking against object, initial encounter; Y93.89 Activity, other specified; Y92.89 Other specified places as the place of occurrence of the external cause; Y99.8 Other external cause status
CPT/HCPCS: 96372; 99284; J1170; J1885

== ENCOUNTER 2020-11-29 00:58 | Emergency (ER) | payer MEDICARE, MEDICAID ==
[~2020-11-29] VITALS: Ht 157.5 cm; Wt 71.0 kg
[2020-11-29 01:00] VITALS: BP 180/83
[2020-11-29] MEDS ORDERED: methylPREDNISolone SOD SUCC 125 MG/2 ML IM ONE (01:30)
[2020-11-29] MEDS ORDERED: KETOROLAC 30 MG/1 ML IM ONE (01:30)
[2020-11-29] MEDS ORDERED: LIDODERM 5% PATCH TD ONE ×2 (01:30→01:59)
[2020-11-29] MEDS ORDERED: DIAZEPAM 5 MG TABLET PO ONE (01:30)
[2020-11-29] MEDS ORDERED: KETOROLAC 30 MG/1 ML ONE (01:59)
[2020-11-29] MEDS ORDERED: DIAZEPAM 5 MG TABLET ONE (01:59)
[2020-11-29] MEDS ORDERED: methylPREDNISolone SOD SUCC 125 MG/2 ML ONE (01:59)
[2020-11-29] MEDS ORDERED: OXYcodone/APAP 5/325MG TABLET PO ONE (02:30)
[2020-11-29] MEDS ORDERED: OXYcodone/APAP 5/325MG TABLET ONE (02:31)
== END 2020-11-29 02:55 | disposition home or self-care (01) ==
LOC: ED 02:29
DX: M54.41 Lumbago with sciatica, right side (principal); F17.210 Nicotine dependence, cigarettes, uncomplicated
CPT/HCPCS: 96372; 99284; J1885; J2930

== ENCOUNTER 2020-12-07 14:00 | Emergency (ER) | payer MEDICARE, MEDICAID ==
[~2020-12-07] VITALS: Ht 157.5 cm; Wt 73.0 kg
[2020-12-07 14:04] VITALS: BP 179/80
[2020-12-07] MEDS ORDERED: ONDANSETRON ODT 4 MG PO ONE (15:30)
[2020-12-07] MEDS ORDERED: HYDROmorphone 1 MG/ML, 1ML INJ IM ONE (15:30)
[2020-12-07] MEDS ORDERED: ONDANSETRON ODT 4 MG ONE (15:40)
[2020-12-07] MEDS ORDERED: HYDROmorphone 1 MG/ML, 1ML INJ ONE (15:40)
== END 2020-12-07 16:36 | disposition home or self-care (01) ==
LOC: ED 16:04
DX: S06.0X0A Concussion without loss of consciousness, initial encounter (principal); S39.012A Strain of muscle, fascia and tendon of lower back, initial encounter; I11.0 Hypertensive heart disease with heart failure; I50.9 Heart failure, unspecified; F17.210 Nicotine dependence, cigarettes, uncomplicated; W18.30XA Fall on same level, unspecified, initial encounter; Y93.89 Activity, other specified; Y92.89 Other specified places as the place of occurrence of the external cause; Y99.8 Other external cause status
CPT/HCPCS: 70450; 72110; 96372; 99284; J1170; Q0162

== ENCOUNTER 2020-12-08 23:17 | Emergency (ER) | payer MEDICARE, MEDICAID ==
[~2020-12-08] VITALS: Ht 157.5 cm; Wt 76.3 kg
[2020-12-08 23:23] VITALS: BP 182/82
--- NOTE | 2020-12-08 23:38 | NUR ---
PT STATED THAT SHE WAS AT HOME YESTERDAY, FELL INTO DOOR. HAD BACK SURGERY ON 10/20/2020. SEEN YESTERDAY AND EVALUATED, DC'D HOME. STATED THAT THE PAIN IS INCREASINGLY WORSENED. PAIN TO LOWER BACK, RADIATING DOWN LEGS. HEADACHE PRESENT, HIT HEAD/ DENIES LOC
[2020-12-08] MEDS ORDERED: KETOROLAC 60 MG/2 ML ONE (23:42)
[2020-12-08] MEDS ORDERED: ONDANSETRON ODT 8 MG ONE (23:42)
[2020-12-08] MEDS ORDERED: HYDROmorphone 1 MG/ML, 1ML INJ ONE (23:42)
--- NOTE | 2020-12-08 23:51 | NUR ---
medicated for pain at this time placed on pulse ox
[2020-12-09] MEDS ORDERED: KETOROLAC 60 MG/2 ML IM ONE
[2020-12-09] MEDS ORDERED: ONDANSETRON ODT 8 MG PO ONE
[2020-12-09] MEDS ORDERED: HYDROmorphone 1 MG/ML, 1ML INJ IM ONE
--- NOTE | 2020-12-09 00:55 | NUR ---
PT REQ ADDITIONAL PAIN MEDICATION ERP UPDATED NO CHANGE IN POC
== END 2020-12-09 01:37 | disposition home or self-care (01) ==
LOC: ED 12-09 01:00
DX: S39.012A Strain of muscle, fascia and tendon of lower back, initial encounter (principal); I11.0 Hypertensive heart disease with heart failure; I50.9 Heart failure, unspecified; G89.29 Other chronic pain; W18.30XA Fall on same level, unspecified, initial encounter; Y93.89 Activity, other specified; Y92.89 Other specified places as the place of occurrence of the external cause; Y99.8 Other external cause status
CPT/HCPCS: 96372; 99284; J1170; J1885; Q0162

== ENCOUNTER 2020-12-27 19:38 | Emergency (ER) | payer MEDICARE, MEDICAID ==
[~2020-12-27] VITALS: Ht 157.5 cm; Wt 74.8 kg
[2020-12-27 19:41] VITALS: BP 159/79
--- NOTE | 2020-12-27 19:55 | NUR ---
PT REQ LIGHTS DIMMED, RAILS UP AND BLANKETS FOR COMFORT. THESE THINGS PROVIDED.
[2020-12-27] MEDS ORDERED: LIDODERM 5% PATCH TD ONE ×2 (20:00→20:02)
[2020-12-27] MEDS ORDERED: DIAZEPAM 5 MG TABLET PO ONE (20:00)
[2020-12-27] MEDS ORDERED: KETOROLAC 30 MG/1 ML IM ONE (20:00)
[2020-12-27] MEDS ORDERED: KETOROLAC 30 MG/1 ML ONE (20:02)
[2020-12-27] MEDS ORDERED: DIAZEPAM 5 MG TABLET ONE (20:02)
== END 2020-12-27 20:35 | disposition home or self-care (01) ==
LOC: ED 20:29
DX: M54.5 Low back pain (principal); F17.210 Nicotine dependence, cigarettes, uncomplicated; I11.0 Hypertensive heart disease with heart failure; I50.9 Heart failure, unspecified; G89.29 Other chronic pain
CPT/HCPCS: 96372; 99283; J1885

== ENCOUNTER 2021-01-02 19:24 | Emergency (ER) | payer MEDICARE, MEDICAID ==
[~2021-01-02] VITALS: Ht 157.5 cm; Wt 74.0 kg
[2021-01-02] MEDS ORDERED: LIDODERM 5% PATCH TD ONE (20:00)
[2021-01-02] MEDS ORDERED: ONDANSETRON 2MG/ML, 2ML IVPush ONE (20:30)
[2021-01-02] MEDS ORDERED: SODIUM CHLORIDE FLUSH 10ML SYR IVF ONE (20:30)
--- NOTE | 2021-01-02 20:30 | NUR ---
PT IN BED, MULTIPLE IV ATTEMPTS.
[2021-01-02] MEDS ORDERED: MORPHINE SULFATE 4 MG/ML, 1ML ONE ×2 (20:35→22:15)
[2021-01-02] MEDS ORDERED: ONDANSETRON 2MG/ML, 2ML ONE (20:35)
[2021-01-02] MEDS ORDERED: OMNIPAQUE 350 MG/ML, 100ML BOTTLE ONE (21:00)
[2021-01-02 21:17] LABS: BASOPHILS % (AUTO) 1 % (0-1); EOSINOPHILS % (AUTO) 3 % (1-7); LYMPHOCYTES % (AUTO) 22 % (22-44); MEAN CORPUSCULAR HEMOGLOBIN 29.8 pg (27.0-34.8); MEAN CORPUSCULAR HGB CONC 34.3 g/dL (32.4-35.8); MEAN PLATELET VOLUME 8.1 fL (7.4-10.4); MONOCYTES % (AUTO) 9 % (2-9); NEUTROPHILS % (AUTO) 66 % (42-75); PLATELET COUNT 302 x10^3/uL (130-400); RED BLOOD COUNT 3.66 x10^6/uL (3.82-5.3)
[2021-01-02] MEDS: MORPHINE SULFATE 4 MG/ML, 1ML IVPush PRN ×2 (21:24→22:16)
[2021-01-02 21:26] LABS: ALBUMIN 3.6 g/dL (3.4-5.0); ANION GAP 10 mmol/L (5-15); CALCIUM 8.4 mg/dL (8.5-10.1); CHLORIDE 96 mmol/L (98-107); CREATININE 0.96 mg/dL (0.55-1.02)
--- NOTE | 2021-01-02 21:26 | NUR ---
EJ IV ADMIN PAIN AND N/V MEDS.
[2021-01-02 21:29] LABS: TROPONIN I < 0.015 ng/mL (0.000-0.045)
[2021-01-02 21:36] LABS: MD NO
--- NOTE | 2021-01-02 22:10 | NUR ---
Report from NAM Gunn. Assumed care. Introducing self and checking on pt, reports she would like more pain meds, reports pain 8/10.
[2021-01-02 22:19] VITALS: BP 125/61
--- NOTE | 2021-01-02 22:21 | NUR ---
Medicated per eMAR. Pt resting in bed watching TV, rates pain 8/10.
--- NOTE | 2021-01-02 22:21 | NUR ---
Dr. Sofia at bedside.
--- NOTE | 2021-01-02 22:22 | NUR ---
Explained to pt that she cannot drive, pt getting a ride home with a friend.
--- NOTE | 2021-01-02 22:32 | NUR ---
IV removed, catheter intact, hemostasis achieved, dressing applied.
== END 2021-01-02 22:34 | disposition home or self-care (01) ==
LOC: ED 20:15
DX: G89.29 Other chronic pain (principal); M54.5 Low back pain; M54.6 Pain in thoracic spine; R94.31 Abnormal electrocardiogram [ECG] [EKG]; I10 Essential (primary) hypertension; F17.290 Nicotine dependence, other tobacco product, uncomplicated; Z98.1 Arthrodesis status
CPT/HCPCS: 36415; 71045; 71275; 80048; 82040; 83880; 84484; 85025; 93005; 96374; 96375; 96376; 99285; J2270; J2405; Q9967

== ENCOUNTER 2021-01-28 01:55 | Emergency (ER) | payer MEDICARE, MEDICAID ==
[~2021-01-28] VITALS: Ht 157.5 cm; Wt 74.9 kg
[2021-01-28] MEDS ORDERED: CYCLOBENZAPRINE 10 MG TABLET ONE (02:29)
[2021-01-28] MEDS ORDERED: KETOROLAC 30 MG/1 ML ONE (02:29)
[2021-01-28] MEDS ORDERED: CYCLOBENZAPRINE 10 MG TABLET PO ONE (02:30)
[2021-01-28] MEDS ORDERED: KETOROLAC 30 MG/1 ML IM ONE (02:30)
--- NOTE | 2021-01-28 02:33 | NUR ---
PT IN IMAGING
--- NOTE | 2021-01-28 02:39 | NUR ---
PT STATES SHE 3 MONTHS OUT OF "MAJOR BACK SURGEY" AND HAS PAIN IN RIGHT KNEE RADIATING TO RIGHT HIP. PT HAS PERSONAL WALKER AT BEDSIDE.
--- NOTE | 2021-01-28 03:06 | NUR ---
REPORT GIVEN TO RUCHI BROWNING
--- NOTE | 2021-01-28 03:09 | NUR ---
Report from WALLACE Blas. When this pt introduced self to pt she asked me for pain medicatons. States toradol did not help and now has 10 back, leg pain. Informed ERP. Addendum: 01/28/21 at 0314 by [email or web address] Report from Wallace Chow
[2021-01-28 03:23] VITALS: BP 135/74
== END 2021-01-28 03:25 | disposition home or self-care (01) ==
LOC: ED 03:16
DX: S83.92XA Sprain of unspecified site of left knee, initial encounter (principal); M54.42 Lumbago with sciatica, left side; G43.909 Migraine, unspecified, not intractable, without status migrainosus; X58.XXXA Exposure to other specified factors, initial encounter; Y93.89 Activity, other specified; Y92.89 Other specified places as the place of occurrence of the external cause; Y99.8 Other external cause status
CPT/HCPCS: 73564; 96372; 99283; J1885; J7512

== ENCOUNTER 2021-02-26 22:33 | Emergency (ER) | payer MEDICARE, MEDICAID ==
[~2021-02-26] VITALS: Ht 157.5 cm; Wt 72.9 kg
--- NOTE | 2021-02-26 23:38 | NUR ---
Back pain that started between shoulder blades, now moving down. 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 Surgery Oct 21 for L1, L2 fusion; took out hardware at L4, L5 Self admin Perc and Advil around 1930 Denies cardiac hx, VSS on ekg monitor tech Ecg obtained
[2021-02-27] MEDS ORDERED: KETOROLAC 30 MG/1 ML IM ONE
[2021-02-27] MEDS ORDERED: DIAZEPAM 5 MG TABLET PO ONE
[2021-02-27] MEDS ORDERED: DIAZEPAM 5 MG TABLET ONE (00:06)
[2021-02-27] MEDS ORDERED: KETOROLAC 30 MG/1 ML ONE (00:06)
[2021-02-27] MEDS ORDERED: LIDODERM 5% PATCH TD ONE ×2 (00:07)
--- NOTE | 2021-02-27 00:10 | NUR ---
MEDICATED PER EMAR FOR UPPER BACK PAIN AT 05/22 VSS OF GEAR HOBBER SET UP OPERATOR UPDATED ON ESTIMATED POC
--- NOTE | 2021-02-27 00:35 | NUR ---
WITH REASSESSMENT PAIN IMPROVED TO 2/[address] TEST UNREMARKABLE MTM CALL UNSUCCESSFUL-PROVIDED WITH TAXI VOUCHER REVIEWED POC-TEACH BACK SUCCESSFUL
[2021-02-27 00:42] VITALS: BP 137/99
== END 2021-02-27 00:45 | disposition home or self-care (01) ==
LOC: ED 23:38
DX: M54.6 Pain in thoracic spine (principal); F17.210 Nicotine dependence, cigarettes, uncomplicated; I11.0 Hypertensive heart disease with heart failure; I50.9 Heart failure, unspecified; G43.909 Migraine, unspecified, not intractable, without status migrainosus
CPT/HCPCS: 93005; 96372; 99283; 99406; J1885

== ENCOUNTER 2021-03-06 18:03 | Emergency (ER) | payer MEDICARE, MEDICAID ==
[~2021-03-06] VITALS: Ht 157.5 cm; Wt 75.7 kg
[2021-03-06 18:05] VITALS: BP 171/84
[2021-03-06] MEDS ORDERED: DIAZEPAM 5 MG TABLET ONE (18:27)
[2021-03-06] MEDS ORDERED: KETOROLAC 60 MG/2 ML ONE (18:27)
[2021-03-06] MEDS ORDERED: DIAZEPAM 5 MG TABLET PO ONE (18:30)
[2021-03-06] MEDS ORDERED: KETOROLAC 30 MG/1 ML IM ONE (18:30)
--- NOTE | 2021-03-06 18:55 | NUR ---
pt up and walking around in room and hallway. front facer light for multiple requests. states "normally the medicine you give me helps more then it is".
== END 2021-03-06 19:30 | disposition home or self-care (01) ==
LOC: ED 18:33
DX: G89.29 Other chronic pain (principal); M54.5 Low back pain; I11.0 Hypertensive heart disease with heart failure; I50.9 Heart failure, unspecified; E87.1 Hypo-osmolality and hyponatremia; E87.6 Hypokalemia; Z88.8 Allergy status to other drugs, medicaments and biological substances
CPT/HCPCS: 96372; 99283; J1885

== ENCOUNTER 2021-04-16 21:31 | Emergency (ER) | payer MEDICARE, MEDICAID ==
[~2021-04-16] VITALS: Ht 157.5 cm; Wt 76.2 kg
--- NOTE | 2021-04-17 | NUR ---
NOT IN LOBBY WHEN CALLED FOR ROOM.
--- NOTE | 2021-04-17 00:25 | NUR ---
PT NOT IN LOBBY WHEN CALLED FOR ROOM X 2.
--- NOTE | 2021-04-17 00:41 | NUR ---
PT NOT IN LOBBY WHEN CALLED FOR ROOM, PT AMA.
== END 2021-04-17 00:57 | disposition left against medical advice (07) ==
LOC: ED 22:00
DX: M25.512 Pain in left shoulder (principal)
CPT/HCPCS: 99283

== ENCOUNTER 2021-04-25 23:34 | Emergency (ER) | payer MEDICARE, MEDICAID ==
[~2021-04-25] VITALS: Ht 157.5 cm; Wt 73.0 kg
[2021-04-25 23:36] VITALS: BP 164/100
== END 2021-04-26 | disposition left against medical advice (07) ==
LOC: ED 23:45
DX: M54.5 Low back pain (principal); M79.605 Pain in left leg; Z53.21 Procedure and treatment not carried out due to patient leaving prior to being seen by health care provider

== ENCOUNTER 2021-05-04 13:16 | Emergency (ER) | payer MEDICARE, MEDICAID ==
[~2021-05-04] VITALS: Ht 157.5 cm; Wt 73.9 kg
[2021-05-04 13:52] VITALS: BP 164/84
--- NOTE | 2021-05-04 16:25 | NUR ---
This nightclub manager attempted to call patient back for second set of vitals but not in lobby at this time.
--- NOTE | 2021-05-04 16:53 | NUR ---
environmental monitoring technician: attempted to call pt from lobby to room, no answer in lobby
== END 2021-05-04 17:58 | disposition left against medical advice (07) ==
LOC: ED 15:30
DX: M54.5 Low back pain (principal); G89.29 Other chronic pain; R20.2 Paresthesia of skin; R15.9 Full incontinence of feces
CPT/HCPCS: 99281

== ENCOUNTER 2021-05-17 18:44 | Emergency (ER) | payer MEDICAID, MEDICARE ==
[~2021-05-17] VITALS: Ht 157.5 cm; Wt 74.6 kg
[2021-05-17 18:55] VITALS: BP 190/95
--- NOTE | 2021-05-17 19:10 | NUR ---
PT AMBULATES FROM TRIAGE TO ROOM WITH STEADY GAIT.
[2021-05-17] MEDS ORDERED: KETOROLAC 30 MG/1 ML IM ONE (20:00)
[2021-05-17] MEDS ORDERED: KETOROLAC 60 MG/2 ML ONE (20:08)
--- NOTE | 2021-05-17 20:09 | NUR ---
US AT PT BS AT THIS TIME.
--- NOTE | 2021-05-17 20:46 | NUR ---
PT MEDICATED PER MAR FOR PAIN.
--- NOTE | 2021-05-17 21:14 | NUR ---
PT D/C WITH D/C SUMMARY. ALL QUESTIONS ANSWERED. PT AMBULATES TO REGISTRATION DESK WITH STEADY GAIT FOR D/C HOME AND DENIES ANY OTHER NEEDS PERTAINING TO THIS VISIT.
== END 2021-05-17 21:16 | disposition home or self-care (01) ==
LOC: ED 20:45
DX: G89.29 Other chronic pain (principal); M25.512 Pain in left shoulder; I11.0 Hypertensive heart disease with heart failure; I50.9 Heart failure, unspecified
CPT/HCPCS: 99284

== ENCOUNTER 2021-07-15 16:45 | Emergency (ER) | payer MEDICAID, MEDICARE ==
[~2021-07-15] VITALS: Ht 158.8 cm; Wt 74.4 kg
[2021-07-15 16:51] VITALS: BP 168/88
--- NOTE | 2021-07-15 18:17 | NUR ---
RN QUALITY: PT SIGNED REQUEST FOR DISCHARGE FORM
== END 2021-07-15 18:19 | disposition left against medical advice (07) ==
LOC: ED 18:13
DX: M54.5 Low back pain (principal); Z53.21 Procedure and treatment not carried out due to patient leaving prior to being seen by health care provider

== ENCOUNTER 2021-08-02 15:04 | Emergency (ER) | payer MEDICARE ==
[~2021-08-02] VITALS: Ht 157.5 cm; Wt 73.9 kg
[2021-08-02] MEDS ORDERED: DIAZEPAM 5 MG TABLET PO ONE (15:30)
[2021-08-02] MEDS ORDERED: KETOROLAC 30 MG/1 ML IM ONE (15:30)
[2021-08-02] MEDS ORDERED: KETOROLAC 30 MG/1 ML ONE (18:05)
[2021-08-02] MEDS ORDERED: DIAZEPAM 5 MG TABLET ONE (18:05)
[2021-08-02 18:16] VITALS: BP 167/77
--- NOTE | 2021-08-02 18:19 | NUR ---
PT PRESENTS TO ED WITH C/O BACK PAIN THROUGHOUT. STATES SPINAL FUSION LAST OCTOBER AND HAVING REALLY BAD BACK SPASMS. PT A&O, RESPS EVEN AND UNLABORED, VSS, NADN. MEDICATED PER ORDER, TOLERATED WELL.
--- NOTE | 2021-08-02 18:53 | NUR ---
RECIEVED REPORT FROM MARY. ASSUMED CARE OF THE PATIENT
[2021-08-02] MEDS ORDERED: HYDROmorphone 2 MG/ML, 1ML IM ONE (19:00)
[2021-08-02] MEDS ORDERED: HYDROmorphone 1 MG/ML, 1ML INJ IM ONE (19:00)
[2021-08-02] MEDS ORDERED: HYDROmorphone 2 MG/ML, 1ML ONE (19:26)
--- NOTE | 2021-08-02 19:57 | NUR ---
Patient given discharge instructions and they have confirmed that they understand the instructions. Patient ambulatory with steady gait. NAD, all questions answered appropriately, denies additional needs at this time. No personal belongings left in room after discharge.
== END 2021-08-02 19:59 | disposition home or self-care (01) ==
LOC: ED 15:56
DX: M54.5 Low back pain (principal); G89.29 Other chronic pain; I10 Essential (primary) hypertension; F17.200 Nicotine dependence, unspecified, uncomplicated
CPT/HCPCS: 96372; 99284; J1170; J1885